=== PATIENT | female | born 1985 | race Caucasian/White ===

== ENCOUNTER 2023-08-04 13:08 | Outpatient (CLI) | payer OTHER, SELFPAY ==
--- NOTE | ~2023-08-04 | MM_ITS ---
EXAMINATION: MM screening teagan BI w yunior HISTORY: Screening mammogram, family history of breast cancer in her mother. TECHNIQUE: Craniocaudal and mediolateral oblique 3-D tomosynthesis images were obtained and synthetic 2-D images were generated. CAD analysis was submitted and interpreted. COMPARISON: 05/28/2017 BREAST PARENCHYMAL COMPOSITION:Dense: The breasts are extremely dense, which lowers the sensitivity o f mammography. FINDINGS: No suspicious mass, calcification, or architectural distortion are identified in either jewels ast to suggest malignancy. There has been no suspicious interval change. IMPRESSION: No mammographic evidence of malignancy. Recommend routine screening mammography in one year. BI-RADS Category 1: Negative Reviewed, dictated and finalized at location .
== END 2023-08-04 13:09 ==
LOC: MICIMG 13:09
PROVIDERS: PCP Family Medicine; Visit Provider Nurse Practitioner
DX: Z12.31 Encounter for screening mammogram for malignant neoplasm of breast (principal)
CPT/HCPCS: 77063; 77067

== ENCOUNTER 2024-08-22 07:43 | Day surgery (SDC) | payer OTHER, SELFPAY ==
[2024-02-29 09:36] VITALS: BMI 29.3
[2024-08-09 14:29] VITALS: BMI 30.9
--- OUTSIDE RECORDS SUMMARY | 2024-08-22 07:48 | XMS_ITS | Referral Summary ---
Author Organization [facility] Healthcare Address [address] [place] [address] Care Team Providers Care Fish Salter Name Role Phone Edil Wu MD Primary Care Provider Cassandra Trevino MD Unavailable [phone] Lisa Mckinley MD Unavailable [phone] Encounters Date Type Department Care Team Description 08/11/2024 Results Follow-Up [facility] Medical [facility]ient Care at [address] [address] Jermaine He NP XR Elbow Left 3+ Vw 08/11/2024 8:10 AM CDT Ancillary Procedure [facility] Imaging at [address] [address] Left elbow pain 08/11/2024 8:00 AM CDT Office Visit [facility] Con[facility]ient Care at [address] [address] Jermaine He NP Left elbow pain (Primary Dx) 08/03/2024 Results Follow-Up [facility] Oncology [address] [place] [phone] Lisa Mckinley MD Diagnostic Mammogram Left W Harjit 08/03/2024 9:33 AM CDT - 08/03/2024 11:59 PM CDT Hospital Encounter [facility] Medical Office Bldg [address] [place] [address] Abnormal mammogram Discharge Disposition: Discharge to home or self care 08/03/2024 9:33 AM CDT - 08/03/2024 11:59 PM CDT Hospital Encounter [facility] Medical Office Bldg [address] [place] [address] Abnormal mammogram Discharge Disposition: Discharge to home or self care 07/28/2024 Orders Only [facility] Oncology [address] [place] [phone] Lisa Mckinley MD Abnormal mammogram (Primary Dx) 07/27/2024 9:25 AM CDT - 07/27/2024 11:59 PM CDT Hospital Encounter [facility] Breast Imaging [address] [place] [address] Breast cancer screening by mammogram Discharge Disposition: Discharge to home or self care 07/26/2024 Results Follow-Up [facility] Oncology [address] [place] [address] Lisa Mckinley MD [facility]AC[facility] MyRisk / Note 2 Tests (M0001), Screening Mammogram Bilateral W Harjit 06/29/2024 9:00 AM CDT Office Visit [facility] Oncology [address] [place] [phone] Lisa Mckinley MD Family history of breast cancer (Primary Dx); Breast cancer screening by mammogram; Breast cancer screening, high risk patient from Last 3 Months Allergies No known active allergies Medications levothyroxine (SYNTHROID) 25 mcg tablet Take 1 tablet (25 mcg total) by mouth daily 05/20/2024 Active sertraline HCl (ZOLOFT ORAL) Active vitamin D3-vitamin K2 25 mcg (1,000 unit)-90 mcg tablet,disintegr ating Take by mouth Active cetirizine (ZyrTEC) 5 mg chewable tablet Take 1 tablet (5 mg total) by mouth daily Active meloxicam (MOBIC) 15 mg tablet Take 1 tablet (15 mg total) by mouth daily for 14 days 14 tablet 08/11/2024 Active Active Problems Problem Noted Date Diagnosed Date Family history of breast cancer 06/29/2024 Social History Tobacco Use Types Packs/Day Years Used Date Smoking Tobacco: Never Passive Smoke Exposure: Never Smokeless Tobacco: Never Tobacco Cessation:Counseling Given: Not Answered AUDIT-C Answer Date Recorded Q1: How often do you have a drink containing alc ohol? Monthly or less 06/29/2024 Q2: How many drinks containi ng alcohol do you have on a typical day when you are drinking? 1 or 2 06/29/2024 Q3: How often do you have si x or more drinks on one occasion? Less than monthly 06/29/2024 Comments No Sex and Gender Information Value Date Recorded Sex Assigned at Not on file Legal Sex Female 12:51 PM CDT Gender Identity Not on file Sexual Orientation Not on file Last Filed Vital Signs Vital Sign Reading Time Taken Comments Blood Pressure 126/84 08/11/2024 8:02 AM CDT Pulse 86 08/11/2024 8:02 AM CDT Temperature 36.6 C (97.9 F) 08/11/2024 8:02 AM CDT Respiratory Rate 18 08/11/2024 8:02 AM CDT Oxygen Saturation 98% 08/11/2024 8:02 AM CDT Inhaled Oxygen Concentration - - Weight 98 kg (216 lb) 08/11/2024 8:02 AM CDT Height 175.3 cm (5' 9) 07/27/2024 9:43 AM CDT Body Mass Index 31.9 07/27/2024 9:43 AM CDT Plan of Treatment Not on file Procedures Procedure Name Priority Date/Time Associated Diagnosis Comments XR ELBOW LEFT 3 OR MORE VIEWS Schedule ULICES, Read ULICES (Appt Today, Awaiting Results) 08/11/2024 8:22 AM CDT Left elbow pain US BREAST LEFT LIMITED Routine 08/03/2024 10:06 AM CDT Abnormal mammogram DIAGNOSTIC MAMMOGRAM LEFT W HARJIT Routine 08/03/2024 9:48 AM CDT Abnormal mammogram SCREENING MAMMOGRAM BILATERAL W HARJIT Schedule Routine, Read Routine (OP Routine) 07/27/2024 9:50 AM CDT Breast cancer screening by mammogram stickK GERMLINE HEREDITARY CANCER TESTING Routine 06/29/2024 3:32 PM CDT Family history of breast cancer from Last 3 Months Results * XR Elbow Left 3+ Vw (08/11/2024 8:22 AM CDT) Anatomical Region Laterality Modality Upper Extremities, Elbow Left Digital Radiography 08/11/2024 2:34 PM CDT Narrative 08/11/2024 2:34 PM CDT EXAM DESCRIPTION: XR ELBOW LEFT 3 OR MORE VIEWS REASON FOR STUDY: Other (type), 6 weeks ago hit elbow on door, pain on lateral elbow unchanged over the past 6 weeks Pt complains of posterior elbow pain after hitting it on a door x 6 weeks ago. No prior fx or surgery TECHNIQUE: 3 radiographic view(s) of the left elbow . COMPARISON: None FINDINGS: BONES/JOINTS: There is no acute fracture or dislocation. No destructive osseous lesion. No joint effusion. SOFT TISSUES: The soft tissues are within normal limits. IMPRESSION: No acute fracture or dislocation. If occult process remains of concern given the persistence of symptoms, CT or MRI can be utilized for further evaluation. THIS IS AN ELECTRONICALLY VERIFIED FINAL REPORT 08/11/2024 2:34 PM - Electronically signed by Yanni Siddiqui M.D. TW T: Report ID: [id number] Reading Location: [id number] Procedure Note Yanni Siddiqui MD - 08/11/2024 EXAM DESCRIPTION: XR ELBOW LEFT 3 OR MORE VIEWS REASON FOR STUDY: Other (type), 6 weeks ago hit elbow on door, pain onlateral elbow unchanged over the past 6 weeks Pt complains of posterior elbow pain after hitting it on a door x 6 weeksago. No prior fx or surgery TECHNIQUE: 3 radiographic view(s) of the left elbow . COMPARISON: None FINDINGS: BONES/JOINTS: There is no acute fracture or dislocation. No destructive osseous lesion. No joint effusion. SOFT TISSUES: The soft tissues are within normal limits. IMPRESSION: No acute fracture or dislocation. If occult process remainsof concern given the persistence of symptoms, CT or MRI can be utilized for further evaluation. THIS IS AN ELECTRONICALLY VERIFIED FINAL REPORT 08/11/2024 2:34 PM - Electronically signed by Yanni Siddqiui M.D. TW T: Report ID: [id number] Reading Location: [id number] us Jermaine He CREDIT CARD CONTROL CLERK IMG XR PROCEDURES Final Result * US Breast Left Limited (08/03/2024 10:06 AM CDT) Anatomical Region Laterality Modality Breast Left Ultrasound 08/03/2024 10:2 6 AM CDT Impressions 08/03/2024 10:26 AM CDT 1. The asymmetry of concern in the anterior inferior left breast on the MLO view correlate is with benign dense fibroglandular tissue on ultrasound. 2. The smaller asymmetry of concern in the anterior inner left breast on the CC view does not persist on today's mammogram and represents benign superimposed dense tissue. 3. No evidence of malignancy in the left breast on mammogram (or targeted ultrasound as detailed above). Monthly breast self-examination and annual screening mammography are recommended. Given the patient's extremely dense breast tissue and elevated estimated lifetime risk of breast cancer, annual screening breast MRI is recommended as an adjunct to annual screening mammography. I discussed today's imaging findings and follow-up recommendations with the patient at the time of the examination. OVERALL FINAL ASSESSMENT: BI-RADS Category 2: Benign. Electronically signed by: Cj Hammer M.D. Narrative 08/03/2024 10:26 AM CDT EXAMINATION: LEFT UNILATERAL DIGITAL DIAGNOSTIC MAMMOGRAM AND DIGITAL BREAST TOMOSYNTHESIS; LEFT BREAST SONOGRAM HISTORY: 39-year-old high risk female (25.5% lifetime risk) recalled from screening mammogram for indeterminate findings in the left breast. Mother and maternal grandmother with breast cancer COMPARISON: Mammography dated 07/27/2024 and 08/04/2023 TECHNIQUE: Full field and spot compression digital mammographic views of the LEFT breast were performed, including computer aided detection (CAD) and digital breast tomosynthesis (DBT). Directed ultrasound evaluation of the LEFT breast was performed. BREAST PARENCHYMAL COMPOSITION: The breasts are extremely dense, which lowers the sensitivity of mammography. MAMMOGRAM FINDINGS: The asymmetry of concern in the anterior inner left breast on the CC view completely disperses with spot compression, evidence of benign superimposed dense tissue. The asymmetry of concern in the anterior inferior left breast on the MLO view incompletely disperses with spot compression. There are no associated suspicious calcifications or architectural distortion. Based on tomosynthesis, this localizes to approximately the 6 o'clock position. There is no other suspicious finding in the left breast on mammogram. SONOGRAM FINDINGS: Targeted ultrasound of the inferior left breast centered at 6:00, 3 cm from the nipple demonstrates only normal dense fibroglandular tissue, which is felt to correlate with the described mammographic asymmetry. No solid or cystic mass or other suspicious finding is seen on ultrasound at this location. Lisa Mckinley MD IMG MAMMO PROCEDURES Final Result * Diagnostic Mammogram Left W Harjit (08/03/2024 9:48 AM CDT) Anatomical Region Laterality Modality Breast Left Mammography 08/03/2024 10:2 6 AM CDT Impressions 08/03/2024 10:26 AM CDT 1. The asymmetry of concern in the anterior inferior left breast on the MLO view correlate is with benign dense fibroglandular tissue on ultrasound. 2. The smaller asymmetry of concern in the anterior inner left breast on the CC view does not persist on today's mammogram and represents benign superimposed dense tissue. 3. No evidence of malignancy in the left breast on mammogram (or targeted ultrasound as detailed above). Monthly breast self-examination and annual screening mammography are recommended. Given the patient's extremely dense breast tissue and elevated estimated lifetime risk of breast cancer, annual screening breast MRI is recommended as an adjunct to annual screening mammography. I discussed today's imaging findings and follow-up recommendations with the patient at the time of the examination. OVERALL FINAL ASSESSMENT: BI-RADS Category 2: Benign. Electronically signed by: Cj Hammer M.D. Narrative 08/03/2024 10:26 AM CDT EXAMINATION: LEFT UNILATERAL DIGITAL DIAGNOSTIC MAMMOGRAM AND DIGITAL BREAST TOMOSYNTHESIS; LEFT BREAST SONOGRAM HISTORY: 39-year-old high risk female (25.5% lifetime risk) recalled from screening mammogram for indeterminate findings in the left breast. Mother and maternal grandmother with breast cancer COMPARISON: Mammography dated 07/27/2024 and 08/04/2023 TECHNIQUE: Full field and spot compression digital mammographic views of the LEFT breast were performed, including computer aided detection (CAD) and digital breast tomosynthesis (DBT). Directed ultrasound evaluation of the LEFT breast was performed. BREAST PARENCHYMAL COMPOSITION: The breasts are extremely dense, which lowers the sensitivity of mammography. MAMMOGRAM FINDINGS: The asymmetry of concern in the anterior inner left breast on the CC view completely disperses with spot compression, evidence of benign superimposed dense tissue. The asymmetry of concern in the anterior inferior left breast on the MLO view incompletely disperses with spot compression. There are no associated suspicious calcifications or architectural distortion. Based on tomosynthesis, this localizes to approximately the 6 o'clock position. There is no other suspicious finding in the left breast on mammogram. SONOGRAM FINDINGS: Targeted ultrasound of the inferior left breast centered at 6:00, 3 cm from the nipple demonstrates only normal dense fibroglandular tissue, which is felt to correlate with the described mammographic asymmetry. No solid or cystic mass or other suspicious finding is seen on ultrasound at this location. Lisa Mckinley MD IMG MAMMO PROCEDURES Final Result * (ABNORMAL) Screening Mammogram Bilateral W Harjit (07/27/2024 9:50 AM CDT) Anatomical Region Laterality Modality Breast Bilateral Mammography Impressions 07/28/2024 12:02 PM CDT Left 1) Asymmetry: Left breast asymmetry in the lower region in the anterior depth. 2) Asymmetry: Left breast asymmetry in the inner region. Right No evidence of malignancy. OVERALL BI-RADS FINAL ASSESSMENT: 0 - Incomplete: Needs Additional Imaging Evaluation RECOMMENDATIONS: Recommend left breast diagnostic mammogram with possible ultrasound. Narrative 07/28/2024 12:02 PM CDT EXAMINATION: Screening Mammogram Bilateral W Harjit: 07/27/2024 COMPARISON: Relevant prior outside studies available at the time of interpretation were reviewed. TECHNIQUE: Mammography was performed with 2D and digital breast tomosynthesis (DBT) images. CAD was utilized. BREAST PARENCHYMAL COMPOSITION: The breasts are extremely dense, which lowers the sensitivity of mammography. FINDINGS: Left 1) Asymmetry: There is an asymmetry seen in the lower region of the left breast in the anterior depth on the MLO view. 2) Asymmetry: There is an asymmetry seen in the inner region of the left breast on the CC view. Right There is no suspicious mass, calcification, or architectural distortion. Lisa Mckinley MD IMG MAMMO PROCEDURES Final Result * [facility] BRACAnalysis and MyRisk / Note 2 Tests (M0001) (06/29/2024 3:32 PM CDT) Pathologist [facility] Bracanalysis and Myrisk / Note 2 Tests Significant Clinical History Finding 07/21/2024 3:36 PM CDT [facility] Comment: BRACANALYSIS AND MYRISK / NOTE 2 TESTS See PDF for complete results. BREAST CANCER RISKSCORE(R): REMAINING LIFETIME RISK 31.3% CLINICAL HISTORY ANALYSIS: BASED ON THE CLINICAL HISTORY PROVIDED, MODIFIED MEDICAL MANAGEMENT GUIDELINES IDENTIFIED NO VARIANT(S) OF UNCERTAIN SIGNIFICANCE (VUS) IDENTIFIED Blood specimen (specimen) Venous blood specimen / Unknown 06/29/2024 3:32 PM CDT 06/30/2024 4:17 PM CDT Lisa Mckinley MD LAB GENETIC TESTING Final R esult [facility] [address] [place] [address] [facility] [address] [place] [address] from Last 3 Months Insurance [facility] CHOICE PLUS CHOICE PLUS CHOICE PLUS Care Teams Fish Salter Relationship Specialty Start Date End Date Edil Wu MD [address] [place] [address] PCP - General Family Medicine 02/06/21 Cassandra Trevino MD [address] [facility] [address] [place] [address] Referring Physician Gynecology 04/01/24 Lisa Mckinley MD [address] [place] [address] Surgeon Medical Oncology 04/01/24
--- OUTSIDE RECORDS SUMMARY | 2024-08-22 07:48 | XMS_ITS | Encounter Summary ---
Author Organization [facility] Address [address] [place] [address] Phone Care Team Providers Care Meat Cutter Apprentice Name Role Phone Edil Wu MD Primary Care Provider Cassandra Trevino MD Unavailable [phone] Calion, Lisa Arteaga MD Unavailable Encounter Details Date Type Department Care Team (Latest Contact Info) Description 07/26/2024 Results Follow-Up [facility] Oncology [address] [place] [address] Lisa Mckinley MD [address] [place], [place] [id number] [facility]AC[facility] MyRisk / Note 2 Tests (M0001), Screening Mammogram Bilateral W Javon Social History Tobacco Use Types Packs/Day Years Used Date Smoking Tobacco: Never Passive Smoke Exposure: Never Smokeless Tobacco: Never AUDIT-C Answer Date Recorded Q1: How often do you have a drink containing alc ohol? Monthly or less 06/29/2024 Q2: How many drinks containi ng alcohol do you have on a typical day when you are drinking? 1 or 2 06/29/2024 Q3: How often do you have si x or more drinks on one occasion? Less than monthly 06/29/2024 Comments Unknown Sex and Gender Information Value Date Recorded Sex Assigned at Not on file Legal Sex Female 12:51 PM CDT Gender Identity Not on file Sexual Orientation Not on file documented as of this encounter Plan of Treatment Not on file documented as of this encounter Visit Diagnoses Not on filedocumented in this encounter Care Teams Meat Cutter Apprentice Relationship Specialty Start Date End Date Edil Wu MD [address] [place] [address] PCP - General Family Medicine 02/06/21 Cassandra Trevino MD [address] [facility] [address] [place] [address] Referring Physician Gynecology 04/01/24 CalionLisa long MD [address] [place] [address] Surgeon Medical Oncology 04/01/24 documented as of this encounter
--- OUTSIDE RECORDS SUMMARY | 2024-08-22 07:48 | XMS_ITS | Clinical Summary ---
Author Organization [facility] Audra mohamud - 2022 Address [address] [facility] 3rd [place] [address] Phone Care Team Providers Care Anthropology Lecturer Name Role Phone Edil Wu MD Primary Care Provider [phone] Social History Tobacco Use Types Packs/Day Years Used Date Smoking Tobacco: Never Assessed Comments Unknown Sex and Gender Information Value Date Recorded Sex Assigned at Not on file Legal Sex Female 10:19 AM CDT Gender Identity Not on file Sexual Orientation Not on file Plan of Treatment Health Maintenance Due Date Last Done Comments DTAP/TDAP/TD VACCINES (1 - Tdap) 2005 HEPATITIS B VACCINES (1 of 3 - 19+ 3-dose series) 2005 HPV/Cotest (21-29) 2007 CERVICAL CANCER SCREENING 01/06/2016 HPV/Cotest (30-65) 01/06/2016 PAP SMEAR 01/06/2016 INFLUENZA VACCINE (#1) 2024 HPV VACCINES Aged Out No longer eligi ble based on patient's age to complete this topic Care Teams Anthropology Lecturer Relationship Specialty Start Date End Date Edil Wu MD PCP - General Family Practice 06/30/12
--- OUTSIDE RECORDS SUMMARY | 2024-08-22 07:48 | XMS_ITS | Encounter Summary ---
Author Organization [facility] Address [address] [place] [address] Phone Care Team Providers Care Fleet Mechanic Name Role Phone Edil Wu MD Primary Care Provider Cassandra Trevino MD Unavailable [phone] Lisa Mckinley MD Unavailable [phone] Encounter Details Date Type Department Care Team (Late st Contact Info) Description 08/03/2024 Results Follow-Up [facility] Oncology [facility] [facility] [address] [place] [address] Lisa Mckinley MD [address] [place], [place] [id number] Diagnostic Mammogram Left W Javon Social History Tobacco Use Types [...] on filedocumented in this encounter Care Teams Fleet Mechanic Relationship Specialty Start Date End Date Edil Wu MD [address] [place] [address] PCP - General Family Medicine 02/06/21 Cassandra Trevino MD [address] [facility] [address] [place] [address] Referring Physician Gynecology 04/01/24 ArlenLisa long MD [address] [place] [address] Surgeon Medical Oncology 04/01/24 documented as of this encounter
--- OUTSIDE RECORDS SUMMARY | 2024-08-22 07:48 | XMS_ITS | Encounter Summary ---
Author Organization [facility] Healthcare Address [address] [place] [address] Care Team Providers Care Real Estate Transaction Manager Name Role Phone Edil Wu MD Primary Care Provider Cassandra Trevino MD Unavailable [phone] MonessenLisa long MD Unavailable [phone] Encounter Details Date Type Department Care Team (Late st Contact Info) Description 08/11/2024 Results Follow-Up [facility] Medical Group Convenient Care at [place] [address] [place] [address] Jermaine He, AMI [address] [facility] [address] [place] [address] XR Elbow Left 3+ Vw Social History Tobacco Use Types Packs/Day Years [...] on filedocumented in this encounter Care Teams Real Estate Transaction Manager Relationship Specialty Start Date End Date Edil Wu MD [address] [place] [address] PCP - General Family Medicine 02/06/21 Cassandra Trevino MD [address] [facility] [address] [place] [address] Referring Physician Gynecology 04/01/24 MonessenLisa long MD [address] [place] [address] Surgeon Medical Oncology 04/01/24 documented as of this encounter
--- OUTSIDE RECORDS SUMMARY | 2024-08-22 07:48 | XMS_ITS | Data Portability ---
Author Organization [place] - [facility] [employer] [facility] Address [address] [place] [address] Assessment No assessment recorded. Plan of Treatment Reminders Order Date Submit Date Provider Last Modified By Organization Details Last Modified Time Details Appointments None recorded. Lab None recorded. Referral None recorded. Procedures None recorded. Surgeries None recorded. Imaging None recorded. Medication Orders Medrol (Jeffrey) 4 mg tablets in a dose pack 2024 025 [facility][id number], [address], [place], [id number], 5 16:17:32 benzonatate 100 mg capsule 2024 025 [facility] #[id number], [address], [place], [id number], 5 16:17:31 albuterol sulfate HFA 90 mcg/actuati on aerosol inhaler 2024 025 [facility] #[id number], [address], [place], [id number], 5 16:17:30 Patient TargetsNo targets recorded. Patient InstructionsNo instructions recorded. Reason for Referral None Reported. Medical Equipment None Reported. Allergies No known drug allergies Medications Name Sig Start Date Stop Date Status Note LastModified by Organization Details LastModified Time prednison e 10 mg tablet 10 mg 04/18 completed Not Available Not Available Not Available Medrol (Jeffrey) 4 mg tablets in a dose pack Take 6 tabs by mouth once daily on day 1, Take 5 tabs by mouth once daily on day 2, Take 4 tabs by mouth once daily on day 3, Take 3 tabs by mouth once daily on day 4, Take 2 tabs by mouth once daily on day 5, Take 1 tab by mouth once day 2024 active Not Available Not Available Not Avai lable prednison e 20 mg tablet 03/30 completed [NOT TAKING] Not Available Not Available Not Available Zithromax Z-Jeffrey 250 mg tablet 250 mg 08/16 completed Not Available Not Available Not Available benzonata te 100 mg capsule Take 1 capsule 3 times a day by oral route as needed, for cough. 2024 active NOT RECOMMEN DED in patient' s less than 10 years of age Not Available Not Available Not Available albuterol sulfate HFA 90 mcg/actua tion aerosol inhaler Inhale 2 puffs every 4 hours by inhalati on route. 2024 active Not Available Not Available Not Avai lable sertralin e active ADDED BY PATIENT: 50mg daily Not Available Not Available Not Available UNLISTED MEDICATIO N [Migrate d medicati on name:] Stan vargas rine:: active [NOT TAKING] Not Available Not Available Not Available Vitals None Recorded Social History None recorded. Functional Status None recorded. Mental Status None recorded. Family History Nothing Reported. Medical History No medical history recorded. Gynecological HistoryNo gynecological history recorded. Obstetrics History GPAL:G 0 P 0 0 0 0 Past Encounters Encounter ID Performer Location Encounter Start Date Encounter Closed Date Diagnosis/Indication Diagnosis SNOMED-CT Code Diagnosis ICD10 Code Diagnosis Note [id number] EVERARDO Hernandez [facility] [address] [place] [address] 03/30/2024 16:08:29 03/30/2024 22:15:02 Viral sinusitis 512517415 B34.9 Post-viral sinusitis and cough - supported by symptoms of sinus inflammati on, facial pressure rated at 5/10, and nasal congestion persisting for 12 days after being diagnosed with the flu. - Prescribed a Medrol Dose Pack (methylpre dnisolone) to be taken as a taper over five days- Recommende d continuati on of Mucinex (guaifenes in) with adequate hydration- Suggested using a humidifier at night to alleviate congestion - Prescribed an albuterol inhaler for acute shortness of breath and bronchial spasms- Prescribed Tessalon Perles (benzonata te) for cough management - Advised using Flonase nasal spray as needed to manage symptoms Health Concerns Section Related Observation LastModified by Organization Detai ls LastModified Time None Recorded Concern Status LastModified by Organization Details LastModified Time None Recorded Advance Directives Directive None Recorded Payers Insurance Date Sequence Insurance Name Policy Number Policy Roman Covered Member ID Roman Member ID Guarantor Name 04/05/2024 1 [facility] [id number] Majo Hummel [id number] E rin Hummel 03/30/2024 1 *SELF PAY* Er in Hummel 03/30/2024 [place] [place] [id number] Majo Hummel [id number] Majo Hummel 03/30/2024 3 *SELF PAY* [id number] Majo Hummel [id number] Majo Hummel 03/30/2024 2 [facility] [id number] Majo Hummel [id number] E rin Hummel Notes Date Note Type Note Provider Name and Address Organization Details Recorded Time 03/30/2024 text/html Patient name , location, and phone number confirmed. Limitations of telemedicine evaluations reviewed, all questions answered, and verbal consent obtained to treat via secure video telemedicine interaction.Clinician attests that the clinician is physically located in the following state at the time of the visit: [place]Patient's current location is: (home address) in [place]Patient consent to AI scribe use CC: Persistent cough and congestion HPI: 39 year old female presents with persistent cold-like symptoms that have been ongoing for 12 days. Initially diagnosed with the flu Patient states she has tried mucinex and sudafed today, ibuprofen as well Fever > 100.4 (Tmax): NoChills: NoNight Sweats: NoMyalgias: NoFatigue: NoNasal congestion: YesNasal discharge: NoSneezing: NoSinus pressure: Yes, 5/10Eye redness/discharge:Ancelmo ar pain/pressure: IntermittentSore throat: Yes on left sideDifficulty swallowing: NoPost nasal drip: NoCough: Yes, wetShortness of breath: Yes with exertionWheezing: NoChest Pain/tightness: NoHeadache: NoDiarrhea: NoNausea/Vomiting: No ( - ) Worsening symptoms after initial improvement of viral symptoms 3 -4 days in duration (double sickness)( - ) Duration of symptoms 10 days without evidence of clinical improvement(- ) Severe symptoms 3- 4 days consecutively, severe symptoms defined as fever >102 F or purulent nasal discharge or severe facial pain LMP: Years ago, 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
--- OUTSIDE RECORDS SUMMARY | 2024-08-22 07:48 | XMS_ITS | Clinical Summary ---
Author Organization [facility] Healthcare Address [address] [place] [address] Care Team Providers Care Slubber Runner Name Role Phone Edil Wu MD Primary Care Provider Cassandra Trevino MD Unavailable [phone] Forest RanchLisa MD Unavailable [phone] Allergies No known active allergies Medications levothyroxine [...] Date Family history of breast cancer 06/29/2024 Encounters Date Type Department Care Team Description 08/11/2024 8:10 AM CDT Ancillary Procedure [facility] Group Imaging at [address] [address] Left elbow pain 08/11/2024 8:00 AM CDT Office Visit [facility] at [address] [address] Jermaine He NP Left elbow pain (Primary Dx) 08/11/2024 Results Follow-Up [facility] Care at [address] [address] Jermaine He NP XR Elbow Left 3+ Vw 08/03/2024 9:33 AM CDT - 08/03/2024 11:59 PM CDT Hospital Encounter [facility] Medical Office [address] [address] Abnormal mammogram Discharge Disposition: Discharge to home or self care 08/03/2024 9:33 AM CDT - 08/03/2024 11:59 PM CDT Hospital Encounter [facility] Medical Office [address] [address] Abnormal mammogram Discharge Disposition: Discharge to home or self care 08/03/2024 Results Follow-Up [facility] [address] [place] [phone] Lisa Mckinley MD Diagnostic Mammogram Left W Harjit 07/28/2024 Orders Only [facility] [address] [place] [phone] Lisa Mckinley MD Abnormal mammogram (Primary Dx) 07/27/2024 9:25 AM CDT - 07/27/2024 11:59 PM CDT Hospital Encounter [facility] Breast Imaging [address] [place] [phone] Breast cancer screening by mammogram Discharge Disposition: Discharge to home or self care 07/26/2024 Results Follow-Up [facility] [place] [phone] Lisa Mckinley MD [facility] BRACAnalysis [facility] MyRisk / Note 2 Tests (M0001), Screening Mammogram Bilateral W Harjit 06/29/2024 9:00 AM CDT Office Visit [facility] [address] [place] [address], [place] [address] Lisa Mckinley MD Family history of breast cancer (Primary Dx); Breast cancer screening by mammogram; Breast cancer screening, high risk patient from Last 3 Months Surgical History Surgery Date Site/Laterality Comments SECTION Medical History Medical History Date Comments Anxiety Family History Medical History Relation Name Comments Colon cancer Father Colon cancer Maternal Grandfather Breast cancer Maternal Grandmother Breast cancer Mother Relation Name Status Comments Father Alive Maternal Grandfather Maternal Grandmother Alive Mother Alive Social History Tobacco Use Types Packs/Day Years [...] on file Sexual Orientation Not on file Obstetrics History Para Term AB IAB SAB Ectopic Multiple Livin g Live Births 2 Date Outcome GA Total Labor Labor/2nd/3rd Weight Sex Type Anes PTL Jessica A1 A5 Name Clin Last Filed Vital Signs Vital Sign Reading [...] 07/27/2024 9:43 AM CDT Plan of Treatment Health Maintenance Due Date Last Done Comments Cervical Cancer Screening 1986 Depression Screening 1986 Hepatitis C Screening 1986 DTaP/Tdap/Td Vaccine (1 - Tdap) 1997 Varicella Vaccines (1 of 2 - 13+ 2-dose series) 1999 Hepatitis B Screening 01/06/2004 Regular Well Visit/Exam 18-64 01/06/2004 Covid-19 Vaccine ( season) 2023 11/09/2020, 03/21/2020, 02/29/2020 Influenza Vaccine (#1) 2024 , 10/24/2019, 12/14/2018, Additional history exists HPV Vaccines Aged Out No longer eligi ble based on patient's age to complete this topic Pneumococcal vaccine <65 Aged Out No longer eligible based on patient's age to complete this topic Procedures Procedure Name Priority Date/Time Associated Diagnosis [...] AM CDT Breast cancer screening by mammogram [employer] GERMLINE HEREDITARY CANCER TESTING Routine 06/29/2024 3:32 [...] Yanni Siddiqui M.D. TW T: Report ID: [id number] Reading Location: [id number] Procedure Note Yanni Siddiqui MD - 08/11/2024 [...] Yanni Siddiqui M.D. TW T: Report ID: [id number] Reading Location: [id number] us Jermaine He NP IMG XR PROCEDURES Final Result * US [...] ultrasound at this location. Lisa Mckinley MD IM MAMMO PROCEDURES Final Result * Diagnostic Mammogram [...] ultrasound at this location. Lisa Mckinley MD [facility]ED[facility] Final Result * (ABNORMAL) Screening [...] calcification, or architectural distortion. Lisa Mckinley MD [facility]EDURES Final Result * [facility] BRACAnalysis and MyRisk / Note 2 Tests (M0001) (06/29/2024 3:32 PM CDT) Bracanalysis and Myrisk / Note 2 Tests Significant Clinical History Finding 07/21/2024 3:36 PM CDT [facility] Comment: BRACANALYSIS AND MYRISK / NOTE [...] MD LAB GENETIC TESTING Final R esult [facility] [address] [place] [address] [facility] [address] [place] [address] from Last 3 Months Insurance [facility] [employer] Care Teams Slubber Runner Relationship Specialty Start Date End Date Edil Wu MD [address] [facility] [address] [place] [address] PCP - General Family Medicine 02/06/21 Cassandra Trevino MD [address] [facility] [address] [place] [address] Referring Physician Gynecology 04/01/24 Lisa Mckinley MD [address] [place] [address] Surgeon Medical Oncology 04/01/24
[2024-08-22 08:14] VITALS: BMI 30.8
[2024-08-22 08:18] VITALS: BP 104/84; PULSE 104; RESP 14; TEMP 36.6; O2SAT 99
--- NOTE | 2024-08-22 08:33 | P.PNAN_ITS ---
Anes - Initial Pre Proc Eval Procedure: Operation Date: 08/22/24 09:30 Proposed Procedures p Screening Colonoscopy - Prudencio Espinosa MD Date/Time: 08/22/24 08:33 Surgeon: Prudencio Espinosa MD Pre Op Diagnosis: Neoplasm Screening Patient Data Age: 39 Gender: F Height: 1.78 m Weight: 97.5 kg Last Vital Signs Temp 97.8 F 08/22/24 08:18 Pulse 104 H 08/22/24 08:18 Resp 14 08/22/24 08:18 BP 104/84 08/22/24 08:18 Pulse Ox 99 08/22/24 08:18 O2 Del Method Room Air 08/22/24 08:18 Allergies Allergy/AdvReac Type Severity Reaction Status Date / Time No Known Allergies Allergy Mild Verified 08/22/24 08:01 Home Medications ?Medication ?Instructions ?Recorded ?Confirmed ?Type sertraline 50 mg tablet (Zoloft) 50 mg PO DAILY #90 tabs 05/18/24 08/22/24 Rx levothyroxine 25 mcg tablet 25 mcg PO DAILY #90 tabs 06/15/24 08/22/24 Rx (Levoxyl) cetirizine 10 mg tablet (24Hour 10 mg PO DAILY PRN allergy symptoms 08/09/24 08/22/24 History Allergy) cholecalciferol (vitamin D3) 125 5,000 unit PO DAILY 08/09/24 08/22/24 History mcg (5,000 unit) tablet (Vitamin D3) Patient hx anesthesia problems: none Family hx anesthesia problems: none Results Review: All pre-operative results and documents have been reviewed as part of the pre- operative evaluation. [facility] Surgical History Surgical History History of section Family History Family History Father Carcinoma of colon, Onset Age: 45 Mother Family history of malignant neoplasm of breast in first degree relative, Onset Age: 55 Social History Social History Smoking status: Never smoker Alcohol intake: current Drinks per week: 0 Alcohol use details: ONE A MONTH Substance use: never Substance use type: does not use Living arrangements: with family Occupation/Education: occupation Gender identity (if verbalized by the patient): Female Spiritual care concerns: No Anes - Eval Final PreProcedure Day of Procedure 08/22/24 08:33 Heart: regular rate and rhythm Lungs: clear to auscultation Neurological: alert and oriented Last oral intake: >/= 8 hours ASA classification: II Anesthetic plan: proceed Anesthesia type and monitoring: monitored anesthesia care Results Review: All pre-operative results and documents have been reviewed as part of the pre- operative evaluation. Informed Consent: The patient's anesthetic plan and its attendant risks and benefits were discussed with the patient/family/POA. Questions were solicited and answers provided to the satisfaction of the patient/family/POA.
[2024-08-22] MEDS: LACTATED RINGERS 1,000 ML 150 ML IV CONT (08:35)
--- NOTE | 2024-08-22 09:35 | PM.IMHP ---
H&P: HPI History of Present Illness Date/Time: 08/22/24 09:35 Chief Complaint: Family history of colorectal cancer Narrative: This patient has family history of colorectal cancer. her father had colon cancer at age 48. Review of Systems Review of Systems: All systems reviewed & are unremarkable except as noted in HPI and below PMFSH Surgical History Surgical History History of section Family History Family History Father Carcinoma of colon, Onset Age: 45 Mother Family history of malignant neoplasm of breast in first degree relative, Onset Age: 55 Social History Social History Smoking status: Never smoker Alcohol intake: current Drinks per week: 0 Alcohol use details: ONE A MONTH Substance use: never Substance use type: does not use Living arrangements: with family Occupation/Education: occupation Gender identity (if verbalized by the patient): Female Spiritual care concerns: No Meds Home Medications and Allergies Home Medications ?Medication ?Instructions ?Recorded ?Confirmed ?Type sertraline 50 mg tablet (Zoloft) 50 mg PO DAILY #90 tabs 05/18/24 08/22/24 Rx levothyroxine 25 mcg tablet 25 mcg PO DAILY #90 tabs 06/15/24 08/22/24 Rx (Levoxyl) cetirizine 10 mg tablet (24Hour 10 mg PO DAILY PRN allergy symptoms 08/09/24 08/22/24 History Allergy) cholecalciferol (vitamin D3) 125 5,000 unit PO DAILY 08/09/24 08/22/24 History mcg (5,000 unit) tablet (Vitamin D3) Allergies Allergy/AdvReac Type Severity Reaction Status Date / Time No Known Allergies Allergy Mild Verified 08/22/24 08:01 Vital Signs Vital Signs - 24 hr 08/22/24 08:18 Temperature 97.8 F Pulse Rate 104 H Respiratory Rate 14 Blood Pressure 104/84 Pulse Oximetry 99 Oxygen Delivery Room Air Exam Const: General: cooperative and healthy appearing Resp: Effort & Inspection: normal respiratory effort and able to speak in complete sentences Auscultation: clear to auscultation bilaterally Cardio: Rate: regular rate Rhythm: regular rhythm GI: Inspection: normal to inspection GI Palp: No No hepatosplenomegaly present Auscultation: normal bowel sounds Rectal Exam: deferred Skin: General skin exam: normal color Psych: Appearance: grossly normal Mental Status: mental status grossly normal Assessment and Plan Assessment and plan (1) Family history of colon cancer: Code(s): Z80.0 - Family history of malignant neoplasm of digestive organs Status: Acute Assessment and Plan: The patient is deemed a good candidate for the procedure. Consent signed. Will proceed.
--- NOTE | 2024-08-22 09:59 | WPDANESPN ---
Anes - Prog Note Post-Op Date/Time: 08/22/24 09:59 Vital Signs: Last Vital Signs Temp 97.8 F 08/22/24 08:18 Pulse 104 H 08/22/24 08:18 Resp 14 08/22/24 08:18 BP 104/84 08/22/24 08:18 Pulse Ox 99 08/22/24 08:18 O2 Del Method Room Air 08/22/24 08:18 Pain Score (VAS): no Patient Feedback: Patient satisfied with anesthetic care.
[2024-08-22 10:12] VITALS: BP 104/69; PULSE 75; RESP 15; O2SAT 100
[2024-08-22 10:22] VITALS: BP 108/74; PULSE 74; RESP 16; O2SAT 100
[2024-08-22 10:32] VITALS: BP 111/75; PULSE 63; RESP 16; O2SAT 100
== END 2024-08-22 10:38 | disposition home or self-care (01) ==
PROVIDERS: PCP Family Medicine; Referring Provider Physician Assistant Medical; Visit Provider Internal Medicine Gastroenterology
PROC: 0DJD8ZZ Inspection of Lower Intestinal Tract, Via Natural or Artificial Opening Endoscopic (ICD-10-PCS; CPT 45378; principal; 2024-08-22 09:30)
DX: Z12.11 Encounter for screening for malignant neoplasm of colon (principal); K63.5 Polyp of colon; Z80.0 Family history of malignant neoplasm of digestive organs
CPT/HCPCS: 45381; 45385

== ENCOUNTER 2024-08-22 08:01 | Outpatient (NON) | payer OTHER, SELFPAY ==
--- NOTE | 2024-08-22 | S_PTH ---
PATIENT: Majo Hummel LOC: [facility] U#:[id number] AGE/SX: 39/F ROOM: RE08/22/[address]: Prudencio Espinosa MD : 1985 BED: DIS: 08/22/2024 SPEC #: [id number] RECD: 08/23/24 08:45 STATUS: ADARSH REQ #: [id number] MICHAELLE: 08/22/24 00:[address]: Prudencio Espinosa DEPT: [facility] Surgical RECD BY: Celestina Christianson ENTERED: 08/23/24 08:45 SP TYPE: Surgical OTHR DR: Edil Wu MD Tissues: A - Colon Polypectomy Procedures: Hematoxylin and Eosin Stain Gross and Microscopic Level 4
--- OUTSIDE RECORDS SUMMARY | 2024-08-23 08:10 | XMS_ITS | Encounter Summary ---
Author Organization [facility] Address [address] [place] [address] Phone Care Team Providers Care International Marketing Executive Name Role Phone Edil Wu MD Primary Care Provider Cassandra Trevino MD Unavailable [phone] Molino, Lisa Arteaga MD Unavailable Encounter Details Date Type Department Care Team (Latest Contact Info) Description 07/26/2024 Results Follow-Up [facility] [address] [place] [address] Lisa Mckinley MD [address] [place], [place] [id number] [facility] / Note 2 [...] on filedocumented in this encounter Care Teams International Marketing Executive Relationship Specialty Start Date End Date Edil Wu MD [address] [place] [address] PCP - General Family Medicine 02/06/21 Cassandra Trevino MD [address]23 [facility] [address] [place] [address] Referring Physician Gynecology 04/01/24 MolinoLisa long MD [address] [place] [address] Surgeon Medical Oncology 04/01/24 documented as of this encounter
--- OUTSIDE RECORDS SUMMARY | 2024-08-23 08:10 | XMS_ITS | Clinical Summary ---
Author Organization [facility] Healthcare Address [address] [place] [address] Care Team Providers Care Nurse Anesthetist Name Role Phone Edil Wu MD Primary Care Provider Cassandra Trevino MD Unavailable [phone] BucodaLisa MD Unavailable [phone] Allergies No known active allergies Medications levothyroxine [...] Description 08/11/2024 8:10 AM CDT Ancillary Procedure [facility] Group Imaging at [address] [address] Left elbow pain 08/11/2024 8:00 AM CDT Office Visit [facility] Care at [address] [phone] Jermaine He NP Left elbow pain (Primary Dx) 08/11/2024 Results Follow-Up [facility] Care at [address] [address] Jermaine He NP XR Elbow Left 3+ Vw 08/03/2024 9:33 AM CDT - 08/03/2024 11:59 PM CDT Hospital Encounter [facility] Medical Office [address] [address] Abnormal mammogram Discharge Disposition: Discharge to home or self care 08/03/2024 9:33 AM CDT - 08/03/2024 11:59 PM CDT Hospital Encounter [facility] Medical Office [address] [address] Abnormal mammogram Discharge Disposition: Discharge to home or self care 08/03/2024 Results Follow-Up [facility] [address] [place] [phone] Lisa Mckinley MD Diagnostic Mammogram Left W Harjit 07/28/2024 Orders Only [facility] [address] [place] [phone] Lisa Mckinley MD Abnormal mammogram (Primary Dx) 07/27/2024 9:25 AM CDT - 07/27/2024 11:59 PM CDT Hospital Encounter [facility] Breast Imaging [address] [place] [phone] Breast cancer screening by mammogram Discharge Disposition: Discharge to home or self care 07/26/2024 Results Follow-Up [facility] [place] [phone] Lisa Mckinley MD [facility] My[facility] / Note 2 Tests (M0001), Screening Mammogram Bilateral W Harjit 06/29/2024 9:00 AM CDT Office Visit [facility] [address] [place] [address], [place] [address] Lisa Mckinley MD Family history [...] AM CDT Breast cancer screening by mammogram [employer] GERMLINE HEREDITARY CANCER TESTING Routine 06/29/2024 3:32 [...] Yanni Siddiqui M.D. TW T: Report ID: [id number] Reading Location: [id number] Procedure Note Yanni Siddiqui MD - 08/11/2024 [...] Yanni Siddiqui M.D. TW T: Report ID: [id number] Reading Location: [id number] us Jermaine He NP IMG XR PROCEDURES [...] seen on ultrasound at this location. Lisa Mckinely MD [facility] MAMMO PROCEDURES Final Result * (ABNORMAL) Screening [...] calcification, or architectural distortion. Lisa Mckinley MD [facility] MAMMO PROCEDURES Final Result * [facility] BRACAnalysis and MyRisk / Note 2 Tests (M0001) (06/29/2024 3:32 PM CDT) Bracanalysis and Myrisk / Note 2 Tests Significant Clinical History Finding 07/21/2024 3:36 PM CDT [facility]: BRACANALYSIS AND MYRISK / [...] MD LAB GENETIC TESTING Final R esult [facility] [address] [place] [address] [facility] [address] [place] [address] from Last 3 Months Insurance [facility] PLUS [facility]PPO Address: [facility] [address] [place] [address] [facility] [employer] [employer]O Address: [address] [address] [facility] Address: [place] [address] Care Teams Nurse Anesthetist Relationship Specialty Start Date End Date Edil Wu MD [address] [place] [address] PCP - General Family Medicine 02/06/21 Cassandra Trevino MD [address] [facility] [address] [place] [address] Referring Physician Gynecology 04/01/24 Lisa Mckinley MD [address] [place] [address] Surgeon Medical Oncology 04/01/24
--- OUTSIDE RECORDS SUMMARY | 2024-08-23 08:10 | XMS_ITS | Clinical Summary ---
Author Organization [facility] Address [address] [facility] 3rd [place] [address] Phone Care Team Providers Care Supervisor Welding Equipment Repairer Name Role Phone Edil Wu MD Primary Care Provider [phone] Social History Tobacco Use Types Packs/Day Years [...] age to complete this topic Care Teams Supervisor Welding Equipment Repairer Relationship Specialty Start Date End Date Edil Wu MD PCP - General Family Practice 06/30/12
--- OUTSIDE RECORDS SUMMARY | 2024-08-23 08:10 | XMS_ITS | Encounter Summary ---
Author Organization [facility] Address [address] [place] [address] Phone Care Team Providers Care Dean Of Graduate Studies Name Role Phone Edil Wu MD Primary Care Provider Cassandra Trevino MD Unavailable Lisa Mckinley MD Unavailable Encounter Details Date Type Department Care Team (Late st Contact Info) Description 08/03/2024 Results Follow-Up [facility] Oncology [facility] [address] [place] [address] Lisa Mckinley MD [address] [place], [place] [id number] Diagnostic Mammogram Left W Javon Social History [...] on filedocumented in this encounter Care Teams Dean Of Graduate Studies Relationship Specialty Start Date End Date Edil Wu MD [address] [place] [address] PCP - General Family Medicine 02/06/21 Cassandra Trevino MD 2023 [facility] [address] [place] [address] Referring Physician Gynecology 04/01/24 ArlenLisa long MD [address] [place] [address] Surgeon Medical Oncology 04/01/24 documented as of this encounter
--- OUTSIDE RECORDS SUMMARY | 2024-08-23 08:10 | XMS_ITS | Referral Summary ---
Author Organization [facility] Healthcare Address [address] [place] [address] Care Team Providers Care Machine Molder Squeeze Name Role Phone Edil Wu MD Primary Care Provider Cassandra Trevino MD Unavailable [phone] Lisa Mckinley MD Unavailable Encounters Date Type Department Care Team Description 08/11/2024 Results Follow-Up [facility] Medical [facility] at [address] [address] Jermaine He NP XR Elbow Left 3+ Vw 08/11/2024 8:10 AM CDT Ancillary Procedure [facility] Imaging at [address] [address] Left elbow pain 08/11/2024 8:00 AM CDT Office Visit [facility] at [address] [address] Jermaine He NP Left elbow pain (Primary Dx) 08/03/2024 Results Follow-Up [facility] Oncology [address] [place] [phone] Lisa Mckinley MD Diagnostic Mammogram Left W Harjit 08/03/2024 9:33 AM CDT - 08/03/2024 11:59 PM CDT Hospital Encounter [facility] Medical Office Bldg [address] [place] [address] Abnormal mammogram Discharge Disposition: Discharge to home or self care 08/03/2024 9:33 AM CDT - 08/03/2024 11:59 PM CDT Hospital Encounter [facility] Medical Office Bldg [address] [place] [address] Abnormal mammogram Discharge Disposition: Discharge to home or self care 07/28/2024 Orders Only [facility] Oncology [address] [place] [phone] Lisa Mckinley MD Abnormal mammogram (Primary Dx) 07/27/2024 9:25 AM CDT - 07/27/2024 11:59 PM CDT Hospital Encounter [facility] Breast Imaging [address] [place] [address] Breast cancer screening by mammogram Discharge Disposition: Discharge to home or self care 07/26/2024 Results Follow-Up [facility] Oncology [address] [place] [address] Lisa Mckinley MD [facility] BRACAnalysis and MyRisk / Note 2 Tests (M0001), Screening Mammogram Bilateral W Harjit 06/29/2024 9:00 AM CDT Office Visit [facility] Oncology [address] [place] [phone] Lisa Mckinley MD Family history of breast [...] AM CDT Breast cancer screening by mammogram [facility] GERMLINE HEREDITARY CANCER TESTING Routine 06/29/2024 3:32 [...] Yanni Siddiqui M.D. TW T: Report ID: [id number] Reading Location: [id number] Procedure Note Yanni Siddiqui MD - 08/11/2024 [...] Yanni Siddiqui M.D. TW T: Report ID: [id number] Reading Location: [id number] us Jermaine He SENIOR OFFICE ASSISTANT IMG XR PROCEDURES Final Result * US [...] MD IMG MAMMO PROCEDURES Final Result * [facility] BRACAnalysis and MyRisk / Note 2 Tests (M0001) (06/29/2024 3:32 PM CDT) Pathologist [facility] Bracanalysis and Myrisk / Note 2 Tests Significant Clinical History Finding 07/21/2024 3:36 PM CDT [facility] Comment: BRACANALYSIS AND MYRISK / NOTE [...] MD LAB GENETIC TESTING Final R esult [facility] [address] [place] [address] [facility] [address] [place] [address] from Last 3 Months Insurance [facility] CHOICE PLUS CHOICE PLUS CHOICE PLUS Care Teams Machine Molder Squeeze Relationship Specialty Start Date End Date Edil Wu MD [address] [place] [address] PCP - General Family Medicine 02/06/21 Cassandra Trevino MD 2022 [facility] [address] [place] [address] Referring Physician Gynecology 04/01/24 Lisa Mckinley MD [address] [place] [address] Surgeon Medical Oncology 04/01/24
--- OUTSIDE RECORDS SUMMARY | 2024-08-23 08:11 | XMS_ITS | Encounter Summary ---
Author Organization [facility] Healthcare Address [address] [place] [address] Care Team Providers Care Cow Washer Name Role Phone Edil Wu MD Primary Care Provider Cassandra Trevino MD Unavailable MelfaLisa long MD Unavailable [phone] Encounter Details Date Type Department Care Team (Late st Contact Info) Description 08/11/2024 Results Follow-Up [facility] Medical Group [facility] at [place] [address] [place] [address] Jermaine He, AMI [address] [facility] [address] [place] [address] XR Elbow Left 3+ Vw [...] on filedocumented in this encounter Care Teams Cow Washer Relationship Specialty Start Date End Date Edil Wu MD [address] [place] [address] PCP - General Family Medicine 02/06/21 Cassandra Trevino MD 2023 [facility] [address] [place] [address] Referring Physician Gynecology 04/01/24 MelfaLisa long MD [address] [place] [address] Surgeon Medical Oncology 04/01/24 documented as of this encounter
--- OUTSIDE RECORDS SUMMARY | 2024-08-23 08:11 | XMS_ITS | Data Portability ---
Author Organization [place] [facility] Address [address] [place] [address] Assessment No assessment recorded. Plan of Treatment Reminders Order Date Submit Date Provider Last Modified By Organization Details Last Modified Time Details Appointments None recorded. Lab None recorded. Referral None recorded. Procedures None recorded. Surgeries None recorded. Imaging None recorded. Medication Orders Medrol (Jeffrey) 4 mg tablets in a dose pack 2024 025 [facility] #[id number], [address], [place], [id number], 5 16:17:32 benzonatate 100 mg capsule 2024 025 [facility] #[id number], [address], [place], [id number], 5 16:17:31 albuterol sulfate HFA 90 mcg/actuati on aerosol inhaler 2024 025 [facility] [employer] #[id number], [address], [place], [id number], 5 16:17:30 Patient TargetsNo targets recorded. Patient [...] SNOMED-CT Code Diagnosis ICD10 Code Diagnosis Note [id number] EVERARDO Hernandez [facility] [address] [place] [address] 03/30/2024 16:08:29 03/30/2024 22:15:02 Viral sinusitis 841611078 B34.9 Post-viral sinusitis and cough - supported [...] Roman Member ID Guarantor Name 04/05/2024 1 [facility] [id number] Majo Hummel [id number] E rin Hummel 03/30/2024 1 *SELF PAY* Er in Hummel 03/30/2024 [facility] [place] [id number] Majo Hummel [id number] Majo Hummel 03/30/2024 3 *SELF PAY* [id number] Majo Hummel [id number] Majo Hummel 03/30/2024 2 [facility] [id number] Majo Hummel [id number] E rin Hummel Notes Date Note Type [...] LMP: Years ago, has the 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
== END 2024-08-22 08:02 | disposition home or self-care (01) ==
PROVIDERS: PCP Family Medicine; Visit Provider Internal Medicine Gastroenterology
DX: K63.5 Polyp of colon (principal); Z80.0 Family history of malignant neoplasm of digestive organs
CPT/HCPCS: 88305